=== PATIENT | female | born 1995 | race African-American/Black ===

== ENCOUNTER 2017-05-08 04:42 | Emergency (ER) | payer BC, MEDICAID, OTHER ==
[2017-05-08 04:50] VITALS: BP 131/79; PULSE 93; RESP 18; TEMP 98.4; O2SAT 95
--- NOTE | 2017-05-08 05:02 | EDPHY ---
H & P Stated Complaint: NAUSEA R/T ANXIETY THIS AM, OUT OF ZOFRAN HPI/ROS: HPI CHIEF COMPLAINT: Medication refill HISTORY OF PRESENT ILLNESS: This patient is a very pleasant 22-year-old female significant past medical history anxiety, she reports when she gets anxious she gets nauseous and normally takes Zofran. She has been recently anxious as her father is sick in the hospital with cancer. She when out of her Zofran and came to the emergency room for medication refill she is requesting a refill of her Zofran. Denies any other complaints. Past Medical History: No significant medical history except for anxiety Past Surgical History: No significant surgical history Social History: Denies daily use of drugs alcohol tobacco products. Family History: Noncontributory. ROS REVIEW OF SYSTEMS: A comprehensive 10 point review of systems is otherwise negative aside from elements mentioned in the history of present illness. Exam Constitutional appears well nontoxic triage nursing summary reviewed, vital signs reviewed, awake/alert. Eyes normal conjunctivae and sclera, EOMI, PERRLA. HENT normal inspection, atraumatic, moist mucus membranes, no epistaxis, neck supple/ no meningismus, no raccoon eyes. Respiratory clear to auscultation bilaterally, normal breath sounds, no respiratory distress, no wheezing. Cardiovascular rate normal, regular rhythm, no murmur, no edema, distal pulses normal. Gastrointestinal soft, non-tender, no rebound, no guarding, normal bowel sounds, no distension, no pulsatile mass. Genitourinary no CVA tenderness. Musculoskeletal no midline vertebral tenderness, full range of motion, no calf swelling, no tenderness of extremities, no meningismus, good pulses, neurovascularly intact. Skin pink, warm, & dry, no rash, skin atraumatic. Neurologic awake, alert and oriented x 3, AAOx3, moves all 4 extremities equally, motor intact, sensory intact, CN II-XII intact, normal cerebellar, normal vision, normal speech. Psychiatric normal mood/affect. Heme/Lymph/Immune no lymphadenopathy. Differential Diagnosis: Includes but is not limited to in a particular order medication refill, need for Zofran for nausea control, anxiety Medical Decision Making: Plan for this patient will refill her Zofran prescription, additionally will give her take-home pack as it is and there is no pharmacies open currently. Return precautions given. Source: Patient - Personal History LMP (Females 10-55): 15-21 Days Ago Current Tetanus/Diphtheria Vaccine: Yes - Medical/Surgical History Hx Asthma: Yes Hx Chronic Respiratory Disease: No Hx Diabetes: No Hx Cardiac Disease: No Hx Renal Disease: No Hx Cirrhosis: No Hx Alcoholism: No Hx HIV/AIDS: No Hx Splenectomy or Spleen Trauma: No Other PMH: Asthma, rhabdomyolysis, ANXIETY, TOE SURG - Social History Smoking Status: Never smoked Constitutional: Initial Vital Signs Temperature (C) 36.9 C 05/08/17 04:46 Heart Rate 93 05/08/17 04:46 Respiratory Rate 18 05/08/17 04:46 Blood Pressure 131/79 H 05/08/17 04:46 O2 Sat (%) 95 05/08/17 04:46 O2 Delivery Mode Room Air Allergies/Adverse Reactions: bacitracin [From Neosporin ([id number])] Allergy (Verified 05/08/17 04:45) brompheniramine maleate [From Dimetapp (brompheniramine-PPA)] Allergy (Verified 12/22/14 15:06) montelukast sodium [From Singulair] Allergy (Verified 12/22/14 15:06) Itching neomycin [From Neosporin ([id number])] Allergy (Verified 05/08/17 04:45) phenylpropanolamine HCl [From Dimetapp (brompheniramine-PPA)] Allergy (Verified 12/22/14 15:06) polymyxin B [From Neosporin ([id number])] Allergy (Verified 05/08/17 04:45) Home Medications: Medication Instructions Recorded Albuterol 5 mg/ml INH [Proventil] 2.5 mg IH PRN PRN 12/04/14 Cetirizine [ZyRTEC] 10 mg PO DAILY 12/04/14 Ethinyl Estradiol/Drospirenone 1 each PO DAILY 12/04/14 [Leslie 28 Tablet] clonazePAM [KlonOPIN] 1 mg PO DAILY PRN #10 tab 12/04/14 Hyoscyamine Sulfate [Levsin] 0.125 mg PO Q6 PRN #20 tablet 12/22/14 clonazePAM [KlonOPIN] 0.5 - 1 mg PO BID PRN #10 tab 12/22/14 Azelastine 05/08/17 Ondansetron HCl [Zofran] 4 mg PO Q4-6PRN PRN #10 tablet 05/08/17 Polyethylene Glycol 3350 [Miralax 17 gm PO DAILY #2 pkt 05/08/17 17 gm (*)] Zoloft 50mg (*) 05/08/17 Departure - Departure Disposition: Home, Routine, Self-Care Clinical Impression: Nausea Condition: Good Instructions: Ondansetron (By mouth) Referrals: UNKNOWN, [Other] - As per Instructions Prescriptions: Ondansetron HCl [Zofran] 4 mg PO Q4-6PRN PRN #10 tablet PRN Reason: Nausea/Vomiting, Use 1st Polyethylene Glycol 3350 [Miralax 17 gm (*)] 17 gm PO DAILY #2 pkt
[2017-05-08] MEDS ORDERED: ONDANSETRON 4MG PREPACK#2 BTL TAKEHOME ONE (05:05)
== END 2017-05-08 05:11 | disposition home or self-care (01) ==
DX: R11.0 Nausea (principal); J45.909 Unspecified asthma, uncomplicated

== ENCOUNTER 2017-06-06 12:17 | Emergency (ER) | payer OTHER ==
[2017-06-06 12:36] VITALS: BP 134/80; PULSE 74; RESP 18; TEMP 98; O2SAT 95
[2017-06-06] MEDS ORDERED: IBUPROFEN 600 MG TAB PO ONE (12:48)
[2017-06-06] MEDS ORDERED: ACETAMINOPHEN 500 MG TAB PO ONE (12:48)
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
== END 2017-06-06 13:11 | disposition home or self-care (01) ==
LOC: CED 12:17
DX: S16.1XXA Strain of muscle, fascia and tendon at neck level, initial encounter (principal); J06.9 Acute upper respiratory infection, unspecified; V49.50XA Passenger injured in collision with unspecified motor vehicles in traffic accident, initial encounter; Y92.410 Unspecified street and highway as the place of occurrence of the external cause